=== PATIENT | male | born 1975 | race Caucasian/White ===

== ENCOUNTER 2022-06-03 23:50 | Emergency (ER) | payer MEDICAID ==
[~2022-06-03] VITALS: Ht 175.3 cm; Wt 63.6 kg
[2022-06-03] MEDS ORDERED: SIMV-43 PO (23:58)
[2022-06-03] MEDS ORDERED: GABA-1201 PO (23:58)
[2022-06-04] MEDS ORDERED: ONDANSETRON HCL 4 MG/2 ML VIAL IVP PRN
[2022-06-04] MEDS ORDERED: 0.9% SODIUM CHLORIDE 10 ML SYRINGE IVP PRN
[2022-06-04] MEDS ORDERED: ACETAMINOPHEN 325 MG TABLET PO PRN
[2022-06-04] MEDS ORDERED: ONDANSETRON HCL 4 MG/2 ML VIAL IM ONE (00:15)
[2022-06-04] MEDS ORDERED: MORPHINE SULFATE 4 MG/ML SYRINGE IM ONE (00:15)
[2022-06-04] MEDS ORDERED: TRAM50TA4 PO (01:37)
[2022-06-04 01:55] VITALS: BP 119/71
== END 2022-06-04 01:57 | disposition home or self-care (01) ==
LOC: EMS 23:52
DX: S52.121A Displaced fracture of head of right radius, initial encounter for closed fracture (principal); F41.9 Anxiety disorder, unspecified; E78.00 Pure hypercholesterolemia, unspecified; F17.210 Nicotine dependence, cigarettes, uncomplicated; F12.90 Cannabis use, unspecified, uncomplicated; Z86.69 Personal history of other diseases of the nervous system and sense organs; V00.848A Other accident with standing micro-mobility pedestrian conveyance, initial encounter; Y93.89 Activity, other specified; Y92.89 Other specified places as the place of occurrence of the external cause; Y99.8 Other external cause status
CPT/HCPCS: 99284; 36415; 29105; 73060; 73080; 73110; 96372; J2270; J2405